=== PATIENT | female | born 1955 | race Caucasian/White ===

== ENCOUNTER 2025-02-05 20:42 | Emergency (ER) | payer MEDICARE, MEDICAID ==
[~2025-02-05] VITALS: Ht 165.1 cm; Wt 52.3 kg
[2025-02-05 21:05] VITALS: BP 106/64; PULSE 72; RESP 18; O2SAT 95
--- NOTE | 2025-02-05 21:41 | Physician Documentation ---
History of Present Illness ~ Chief Complaint: Wound Stated Complaint: L LEG WOUND Time Seen by MD: 21:22 HPI This is a 69-year-old female who has had a lesion on her left posterior calf since 2014. Initially it was frozen off, then it returned. Afterwards this was biopsied and she was told that this is cancer. She did not seek medical care with the oncology general surgery to have it excised. She does not know what kind of cancer it was. The last time she received any sort of care for this lesion was in 2019 until she went to urgent care two days ago and was advised that she needs to go to the ER to get antibiotics and to get connected with the wound care, oncology, general surgery. She states that is for the last several days the wound is getting more purulent, it has a unpleasant odor and it has some yellow discharge. She has been providing her own wound care by getting supplies from [employer]. She states that the reason she did not seek medical care is because her life was very stressful for the last five years. She denies any recent weight loss. Denies any fever, chills, difficulty breathing, nausea, vomiting, diarrhea, abdominal pain. She smokes marijuana Tetanus within 5 years?: Yes Medication Reconciliation Allergies: Coded Allergies: No Known Allergies (Unverified , 02/05/25) Past Medical History Past Medical History: No Pertinent History Past Surgical History: no surgical history Patient History: FH: cancer FATHER MOTHER Alcohol Use: None Drug Use: none Review of Systems ROS 10 point review of systems was performed and unless noted above in HPI is negative for acute process/complaint. Physical Exam Vital Signs: Temperature: 97.3, Source: Temporal, Heart Rate: 72, Respiratory Rate: 18, BP: 106/64, Pulse Oximetry: 95, Weight: 52.270 Oxygen Flow Rate: 0 Physical Exam \Physical examination: GENERAL: Awake, alert, oriented, GCS 15, no apparent distress, non-toxic appearing, answers questions, follows commands appropriately. Examined in R AP room HEENT: Atraumatic, normocephalic, pupils equal, extraocular muscles intact Active gross movements, sclerae anicteric, mucus membranes moist, no stridor. NECK: Midline, no JVD CARDIOVASCULAR: Good skin perfusion without evidence of pallor, mottling. PULMONARY: Nonlabored, symmetric chest rise, no audible wheezing, no accessory muscle use, no respiratory distress, speaking in full sentences. GASTROINTESTINAL: Not distended. NEUROLOGIC: Lucid with normal mental status. Normal facial symmetry. Moves all extremities symmetrically and with purpose. No truncal ataxia. Speech is fluid without evidence of dysarthria or aphasia, no focal deficits appreciated. EXTREMITIES: Acute deformities Skin: warm, dry PSYCHIATRIC: Normal affect, normal insight, normal concentration. Focused exam: [Left posterior calf is examined. There is an oval 6 x 4 cm irregular friable lesion concerning for carcinoma of the skin with a surrounding erythema without discrete edges, yellow purulent exudate inside the tumor. No active bleeding at this time.] Progress Results/Orders Results/Orders Orders - LAURI BURRELL DO Wound Care Consult (02/05/25 21:30) * Measure Wound & Document In (02/05/25 21:30) * Additional Wound Care Orders (02/05/25 21:30) Cult (Aer) Routine C&S+Gram St (02/05/25 21:30) Completed Orders - LAURI BURRELL DO Cephalexin Capsule (Keflex Capsule) (02/05/25 21:30) Sulfamethox/Trimetho. Ds Tab (Septra Ds (02/05/25 21:30) Vital Signs 02/05/25 21:05 Temp 97.3 Pulse 72 Resp 18 B/P (MAP) 106/64 Pulse Ox 95 O2 Flow Rate 0 Medical Decision Making Additional information obtaine: N/A Findings Facility Status: ED Holds, RME process The plan was discussed with the patient, who demonstrates clear understanding of the plan and is in agreement with the plan unless otherwise noted in the chart. All questions have been answered, all concerns were addressed unless otherwise documented. I was available throughout their ED stay for frequent reassessment and questions. Differential Diagnoses (considered and possible or likely): [This presentation is very concerning for an infected squamous cell carcinoma versus basal cell carcinoma lesion, that has a gone untreated for years, I am concerned about superimposed cellulitis as well as but less likely abscess on differential diagnosis, unlikely to be necrotizing infection, unlikely to be osteomyelitis.] ??Differential Diagnoses (considered and unlikely, not requiring evaluation currently): [No evidence of neurovascular injury] MDM Data Please see HPI for the following: Independent Historians and external Records Review. Historian: [Patient] Independent Historians: ?[None] Medication Management: [Reviewed medication list] Social History and determinants: [Reviewed] Please see the body of the note for the following: Any independent interpretations of ECG, imaging studies. All vitals signs/haemodynamics, ordered tests were independently reviewed and interpreted by myself. Nursing triage complaint and vitals reviewed, additional nursing notes were reviewed as available and I agree unless otherwise noted or documented in contradiction in the chart Vital Signs: Independently reviewed Labs: Independently interpreted Imaging: Independently interpreted Old Medical Records: Independently reviewed, see HPI for relevant summary and information Additionally notably showing: [Hemodynamically stable] Tests considered but not ordered include: [Hematologic workup and imaging has been considered but does not appear to be necessary given clinical nature of diagnosis. PET scan is likely necessary but can be done on an outpatient basis] Social Determinants of Health Impact: Patient was [facility] [place] to healthcare due to below par ratio of patient to medical providers. [] Comorbid Conditions Impacting Present Evaluation and Care/Treatment: [Poor health literacy, denies any other medical conditions] Management Discussions with other Healthcare Providers: [Wound care was consulted] Treatment and Disposition Medication Management (Given or considered): [Initial dose of antibiotics]. See EMR for details Consideration for Hospitalization/Escalation/Deescalation of Care: Admission for observation has been considered, [however the patient is able to tolerate p.o., their symptoms are controlled, they are able to rely on oral medications, and their chief complaint/diagnosis can be managed on outpatient basis.] ?ED Course:?[Wound culture was obtained and sent off. Dressings were change. Wound care consult was requested. 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 She will need to establish with a PCP and get referral to Oncology. This lesion likely going to need to be excised.] ?Shared decision making:?[Patient is hemodynamically stable for discharge home with follow with their primary care provider. [ ] Specific and cautious return precautions provided and discussed with full understanding. Any incidental findings were also discussed and follow up recommendations given. [] All questions answered. Patient/family were able to verbalize back return precautions. Patient/family agree to plan. Copies of imaging and laboratory studies were provided.] Code status:?FULL Please see the full Electronic Medical Record for full details of nursing documentation, medications list, other records of complete past medical history and conditions, vital signs, laboratory studies, and any radiologic study interpretations by radiologists. Portions of this note were completed using [employer] dictation software and as a result there may exist minor errors in spelling. I have reviewed elements of past family and social history and agree as included in note. Differential Dx:Considerations: Include: Abscess, Cellulitis, Dressing change, Other (See body of the main note) Departure Disposition: HOME / SELF CARE / HOMELESS Impression: Primary Impression: Wound cellulitis Additional Impression: Carcinoma of skin of lower extremity Condition: Stable Discharge Instructions: Cellulitis, Adult, How to Change Your Wound Dressing Referrals: ELGIN KENDRICK MD Please follow-up with general surgeon to discuss excision of your large cancers wound. Failure to do so, failure to get biopsy, failure to do follow-up we will result in metastasis of your cancer and untimely . Prescriptions Sulfamethoxazole/Trimethoprim (Bactrim Ds Tablet) 800 Mg-160 Mg Tablet 1 TAB PO Q12H for 10 Days, #20 TAB Prov: LAURI BURRELL DO 02/05/25 Cephalexin*Monohydrate* (Keflex*) 500 Mg Capsule 1 CAP PO Q6H for 10 Days, #40 CAP Prov: LAURI BURRELL DO 02/05/25 Education Educated: Patient Educated regarding: diagnosis, treatment, prognosis, need for follow up Signature Scribe Signature: No scribe Attestation: Date: Feb 05, 2025 Time: 21:46 This note accurately reflects clinical decisions, work performed by myself, DO ASHANTI Gonzalez NICHOLAS M DO Feb 05, 2025 21:41
[2025-02-05] MEDS ORDERED: CEPH-585 PO (21:46)
[2025-02-05] MEDS ORDERED: SULF1TAB49 PO (21:46)
[2025-02-05] MEDS: sulfamethoxazole/trimethoprim DS (800/160mg) tablet PO ONE (21:48)
[2025-02-05 22:02] VITALS: TEMP 97.3
== END 2025-02-05 22:07 | disposition home or self-care (01) ==
LOC: ER 20:42
DX: C44.90 Unspecified malignant neoplasm of skin, unspecified (principal); L03.116 Cellulitis of left lower limb; F12.90 Cannabis use, unspecified, uncomplicated
CPT/HCPCS: 87070; 87077; 87186; 99283